=== PATIENT | female | born 1995 | race Caucasian/White ===

== ENCOUNTER 2022-04-21 02:00 | Emergency (ER) | payer BC, OTHER ==
[2022-04-21 14:30] LABS: ANION GAP 14.9 meq/L (7-15); CHLORIDE,CL 101 mmol/L (98-107); ESTIMATED GFR 115 mL/min (>=60); SODIUM,NA 140 mmol/L (136-145)
== END 2022-04-21 15:13 | disposition home or self-care (01) ==
LOC: LL.ED 14:00
DX: Z77.098 Contact with and (suspected) exposure to other hazardous, chiefly nonmedicinal, chemicals (principal)
CPT/HCPCS: 36415; 80048; 82375; 85025; 99283

== ENCOUNTER 2022-06-23 14:05 | Emergency (ER) | payer BC, MEDICAID ==
[2022-06-23] MEDS ORDERED: Sodium Chloride 0.9% 10 ML Syringe FLUSH PRN (14:29)
[2022-06-23] MEDS: Sodium Chloride 0.9% 1,000 ML IV ONE (14:52)
[2022-06-23 15:12] LABS: ANION GAP 10.8 meq/L (7-15); CHLORIDE,CL 100 mmol/L (98-107); SODIUM,NA 139 mmol/L (136-145)
[2022-06-23 15:19] LABS: ESTIMATED GFR 106 mL/min (>=60)
[2022-06-23] MEDS: Promethazine 25 MG/ML SDV IM ONE (15:43)
[2022-06-23 15:44] LABS: CORONAVIRUS COVID-19 NAA NEGATIVE (NEGATIVE); RESPIRATORY SYNCYTIAL VIR NAA NEGATIVE (NEGATIVE)
[2022-06-23] MEDS: Nitrofurantoin Monohydrate/Macrocrystalline 100 MG Cap PO ONE (16:26)
[2022-06-23] MEDS: Promethazine 25 MG Tab PO ONE (16:26)
== END 2022-06-23 16:45 | disposition home or self-care (01) ==
LOC: LL.ED 14:05
DX: N39.0 Urinary tract infection, site not specified (principal); I10 Essential (primary) hypertension; Z79.899 Other long term (current) drug therapy; Z88.1 Allergy status to other antibiotic agents; Z20.822 Contact with and (suspected) exposure to COVID-19
CPT/HCPCS: 0241U; 36415; 80053; 81001; 84702; 85025; 87086; 96360; 99284; A9270; J7030

== ENCOUNTER 2022-07-18 12:32 | Emergency (ER) | payer MEDICAID ==
[2022-07-18 13:42] LABS: ANION GAP 13.3 meq/L (7-15)
== END 2022-07-18 14:43 | disposition home or self-care (01) ==
LOC: LL.ED 12:32
DX: R10.11 Right upper quadrant pain (principal); R11.2 Nausea with vomiting, unspecified; I10 Essential (primary) hypertension; Z88.1 Allergy status to other antibiotic agents; Z79.899 Other long term (current) drug therapy
CPT/HCPCS: 36415; 80053; 85025; 99283; 99284

== ENCOUNTER 2022-11-30 12:25 | Emergency (ER) | payer MEDICAID ==
[2022-11-30] MEDS ORDERED: Take Home: traMADol 50 MG, 4 Tab Pack PO ONE (13:20)
== END 2022-11-30 13:45 | disposition home or self-care (01) ==
LOC: LL.ED 12:25
DX: S92.425A Nondisplaced fracture of distal phalanx of left great toe, initial encounter for closed fracture (principal); I10 Essential (primary) hypertension; J45.909 Unspecified asthma, uncomplicated; Z98.890 Other specified postprocedural states; Z88.1 Allergy status to other antibiotic agents; Z79.899 Other long term (current) drug therapy; W10.9XXA Fall (on) (from) unspecified stairs and steps, initial encounter
CPT/HCPCS: 73630-LT; 99283; A9270-GY